=== PATIENT | female | born 1980 | race Caucasian/White ===

== ENCOUNTER 2019-03-21 23:35 | Inpatient (IN) ==
[2019-03-21] MEDS ORDERED: OXYTOCIN 30 UNITS/500 ML BAG IV PRN (23:53)
--- NOTE | 2019-03-22 00:01 | History & Physical Report ---
Date of Service March 21, 2019 Assessment & Plan (1) Uterine contractions at greater than 20 weeks of gestation: 38 yo [id number] 39.4 wks with regular ctxs, cervical change, in labor FHR reassuring GBS negative Desires epidural for pain Plan to admit, labs, IVF, epidural for pain, anticipate (2) Active labor at term: History of Present Illness Primary Care Provider: Yemi William MD Patient is a 38 yo at 39.4 wks who has been feeling ctxs since 7 pm, got closer and regular after 10 pm No LOF/VB +FM Her has been uncomplicated except 1) AMA 2) Transfer of care at 276 wks from 3) 1.2 cm rigth axillary mass, benign features, f/u after delivery by Dr. 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
[2019-03-22] MEDS ORDERED: ePHEDrine sulfate 50 MG/ML AMP ONE (00:09)
[2019-03-22] MEDS ORDERED: BUPIVACAINE 0.25% 30 ML VIAL ONE (00:09)
[2019-03-22] MEDS ORDERED: fentaNYL citrate 100 MCG/2 ML VIAL ONE (00:09)
[2019-03-22] MEDS: LACTATED RINGER'S 1,000 ML IV PRN ×2 (00:10→01:08)
[2019-03-22] MEDS ORDERED: fentaNYL 2MCG/ML ROPIV 1.25MG/ML 100 ML BAG EPI ONE (00:10)
[2019-03-22 00:30] LABS: Hematocrit (blood only) 39.9 % (37-47); Hemoglobin 13.9 g/dL (12.0-16.0); Mean Corpuscular Volume 89.1 fL (80-100); Mean Platelet Volume 9.7 fL (7.4-10.4); Platelet Count 175 K/uL (130-400); RDW Coefficient of Variation 13.3 % (11.5-14.5); RDW Standard Deviation 42.9 fL (36.4-46.3); Red Blood Count 4.48 M/uL (4.2-5.4); White Blood Count 13.87 K/uL (4.8-10.8)
[2019-03-22 00:42] LABS: Mean Corpuscular Hgb Conc 34.8 g/dL (32-36)
[2019-03-22 00:46] LABS: Albumin Level 2.9 gm/dl (3.4-5.0); BUN Creatinine Ratio 6.6 (10-20); Calcium 9.4 mg/dl (8.5-10.1); Creatinine Clr Calc Pharmacy 101.4 ml/min; Est GFR (African American) 129.8; Potassium 3.6 mmol/L (3.5-5.1)
[2019-03-22 00:49] LABS: Albumin Globulin Ratio 0.7 (0.9-2); Bilirubin,Total 0.3 mg/dl (0.2-1); Globulin 4.2 gm/dl (2.5-4.0); Total Protein 7.1 gm/dl (6.4-8.2)
--- NOTE | 2019-03-22 00:52 | Anesthesiology Consultation ---
Date of Service March 22, 2019 Assessment & Plan Chart Review Chart Review: Patient NOT seen in Pre Admission Testing and Acceptable Risk for Labor Epidural Consults Requested none ASA ASA2 Proposed Anesthesia Anesthesia Type: Labor Epidural Risk / Benefits Reviewed With: PT / POA / Parent / Guardian, Accepts Plan and Informed Consent Obtained History Height/Weight Height: 5 ft 5 in Weight: 66.224 kg Allergies Allergy/AdvReac Type Severity Reaction Status Date / Time No Known Allergies Allergy Mild Verified 03/21/19 23:43 Medications Home Medications Medication Instructions Recorded Confirmed Last Taken vit-iron fum-folic ac 1 tab PO DAILY 03/21/19 03/21/19 03/21/19 09:00 [ Vitamin] Active Medications Generic Name Dose Route Start Last Admin Trade Name Freq PRN Reason Stop Dose Admin Lactated Ringer's 1,000 mls @ 150 mls/hr 03/21/19 23:53 03/22/19 01:08 Lr IV 03/23/19 23:52 150 mls/hr .Q6H40M PRN Administration L&D Protocol Protocol NPO Date Last Intake of Fluids: 03/22/19 Time Last Intake of Fluids: 00:50 Date Last Intake of Solids: 03/21/19 Time Last Intake of Solids: 20:00 Exercise / Class Metabolic Activity II 4-5 Yardwork/Stairs/Walk up hill Past Surgical History Surgical History H/O dilation and curettage 2018 [place] teeth extracted 2000 Past Anesthesia History No Hx of Anesthesia Complications History of PONV No Hx of PONV Social History Smoking Status: Never smoker Hx Alcohol Use: No Hx Substance Use: No substance use type: does not use Review of Systems Patient denies history of abnormal bleeding or bleeding disorder. Patient denies active use of anticoagulants other than low dose aspirin. Patient denies numbness, tingling or weakness in lower extremities. Negative for chest pain or shortness of breath. Physical Exam Vital Signs Last Vital Signs Temp 36.5 C 03/21/19 23:58 Pulse 100 H 03/22/19 01:18 Resp 18 03/21/19 23:58 BP 106/54 L 03/22/19 01:18 Pulse Ox 100 03/22/19 01:15 Constitutional not obese (Gravid uterus) ENMT Mouth: no TMJ abnormality and oral opening not small Thyromental Distance: > or= 3.5 Finger Breadths Mallampati Class: I Neck normal visual inspection; neck extension not limited Respiratory normal respiratory effort Auscultation: lungs clear to auscultation bilaterally Cardiovascular Rate/Rhythm: regular rate and regular rhythm Heart Sounds: no murmur Neurologic moves all extremities Psychiatric Orientation: alert and oriented x 3 Testing Laboratory Results 03/22/19 00:19 03/22/19 00:19
[2019-03-22] MEDS ORDERED: ePHEDrine sulfate 50 MG/ML AMP IV PRN (01:30)
[2019-03-22] MEDS ORDERED: NALOXONE HCL 0.4 MG/1 ML VIAL/CARP IV PRN (01:30)
[2019-03-22] MEDS ORDERED: ONDANSETRON INJ 2 MG/ML 2 ML VIAL IV PRN (01:30)
[2019-03-22] MEDS ORDERED: DiphenhydrAMINE HCL 50 MG/ML VIAL IV PRN (01:30)
[2019-03-22] MEDS ORDERED: NALBUPHINE HCL INJ 10 MG/ML AMP IV PRN (01:30)
[2019-03-22] MEDS ORDERED: fentaNYL 2MCG/ML ROPIV 1.25MG/ML 100 ML BAG EPI PRN (01:30)
[2019-03-22] MEDS ORDERED: NALOXONE HCL 1 MG in SODIUM CHLORIDE 0.9% 1000ML 1,000 ML IV PRN (01:30)
--- NOTE | 2019-03-22 03:05 | Obstetrical Progress Note ---
Date of Service March 22, 2019 Subjective Patient is reevaluated She feels pressure VE: 7-8 cm/ 90%/ 0, AROM'ed light meconium FHR category I [place]: ctxs q 2-3 min Continue to monitor closely Results & Data Vital Signs (Past 12 Hours) Vital Signs Temp Pulse Resp BP Pulse Ox 03/22/19 03:00 113 H 98 03/22/19 02:55 124 H 98 03/22/19 02:50 103 H 97 03/22/19 02:49 110 H 110/66 03/22/19 02:45 126 H 97 03/22/19 02:40 127 H 97 03/22/19 02:35 112 H 98 03/22/19 02:33 110 H 101/58 L 03/22/19 02:30 112 H 96 03/22/19 02:25 114 H 99 03/22/19 02:20 118 H 97 03/22/19 02:18 116 H 102/58 L 03/22/19 02:15 111 H 98 03/22/19 02:12 125 H 103/61 03/22/19 02:10 114 H 98 03/22/19 02:08 127 H 117/70 03/22/19 02:05 112 H 100 03/22/19 02:03 122 H 124/70 03/22/19 02:00 109 H 100 03/22/19 01:59 102 H 110/61 03/22/19 01:55 105 H 100 03/22/19 01:52 100 H 105/55 L 03/22/19 01:50 105 H 100 03/22/19 01:48 109 H 119/62 03/22/19 01:45 109 H 99 03/22/19 01:42 100 H 113/64 03/22/19 01:40 104 H 99 03/22/19 01:38 111 H 114/66 03/22/19 01:35 110 H 99 03/22/19 01:31 115 H 127/72 03/22/19 01:30 106 H 99 03/22/19 01:29 106 H 125/77 03/22/19 01:28 104 H 124/73 03/22/19 01:26 93 H 110/61 03/22/19 01:25 102 H 99 03/22/19 01:24 94 H 106/62 03/22/19 01:22 107 H 98/54 L 03/22/19 01:20 90 96/55 L 100 03/22/19 01:18 100 H 106/54 L 03/22/19 01:16 107 H 116/59 L 03/22/19 01:15 100 H 100 03/22/19 01:14 117 H 139/67 03/22/19 01:12 127 H 132/84 03/22/19 01:11 124 H 92 03/22/19 01:10 114 H 100 03/22/19 01:05 95 H 100 03/22/19 01:00 106 H 98 03/22/19 00:55 109 H 99 03/22/19 00:50 103 H 136/92 99 03/21/19 23:58 36.5 C 96 H 18 132/87 03/21/19 23:40 36.5 C 96 H 18 132/87
[2019-03-22] MEDS ORDERED: OXYTOCIN 30 UNITS/500 ML BAG IV PRN (04:23)
[2019-03-22] MEDS ORDERED: ACETAMINOPHEN 325 MG TAB PO PRN (04:23)
[2019-03-22] MEDS ORDERED: OXYCODONE/ACETAMINOPHEN 5mg/325mg TAB PO PRN (04:23)
[2019-03-22] MEDS ORDERED: bisacodyL 10 MG SUPP PR PRN (04:23)
[2019-03-22] MEDS ORDERED: HYDROCORTISONE ACETATE 25 MG SUPP PR PRN (04:23)
[2019-03-22] MEDS ORDERED: BENZOCAINE 20% AER SPR 82.5 GM CAN EXT PRN (04:23)
[2019-03-22] MEDS ORDERED: DIPHTHERIA/TETANUS/PERTUSSIS 0.5 ML SYR/VIAL IM ONE (04:23)
[2019-03-22] MEDS ORDERED: SUPERCREAM 0.870% 15 GM JAR EXT PRN (04:23)
[2019-03-22] MEDS ORDERED: MEASLES, MUMPS & RUBELLA VIRUS VIAL SQ ONE (04:23)
[2019-03-22] MEDS ORDERED: LACTATED RINGER'S 1,000 ML IV SCH (04:30)
--- NOTE | 2019-03-22 07:09 | Delivery Summary ---
DATE OF OPERATION: 03/22/2019 DATE OF DELIVERY: 03/22/2019 TIME OF DELIVERY OF BABY: 04:00 a.m. DETAILS OF DELIVERY: The patient was found to be fully dilated and desired to push. She pushed for about 15 minutes and delivered, and the head was over the perineum. It was a tight skin band and holding the head. FHR had decelerations and mom was being exhausted and desired assistance. Then a small 1 cm incision was made on the tight skin edge and head was delivered without difficulty. Shoulders were delivered with minimal traction. Baby was handed off to the mother where mouth and nose were suctioned. Cord was clamped x2 and cut. Baby was handed off to the waiting pediatric team. Cord blood was obtained. Vagina and perineum were checked for lacerations. There was a second-degree perineal/ lower vaginal laceration and the rest of the vagina, labia were intact. This was repaired with 0 Vicryl in a running fashion bringing the vaginal mucosa together, bulbocavernous muscles together, skin in a subcuticular fashion. Excellent hemostasis was achieved. Placenta was found to be in the vagina, delivered spontaneous as intact and complete. Uterus was explored, found to be empty. Lower segment was cleared of all clots and debris. Fundus was firm. EBL was 100 mL. Mom and baby tolerated the procedure well. Sponge, lap, needle count was correct x2. Baby was a viable male , Apgars 6/8. Weight is 3733 gr. No complications happened and I was present during whole procedure. I attest to the content of the Intraoperative Record and any orders documented therein. Any exceptions are noted below. FEDERICOD
--- NOTE | 2019-03-22 08:38 | Anesthesiology Progress Note ---
Date of Service March 22, 2019 Anesthesia Post Procedure Vital Signs Vital Signs: Temp Pulse Resp BP Pulse Ox 03/22/19 06:18 36.8 C 123 H 16 113/58 L 03/22/19 06:03 108/80 03/22/19 05:48 116 H 18 110/77 03/22/19 05:33 120 H 103/71 03/22/19 05:18 116 H 16 106/71 03/22/19 05:03 115 H 18 114/78 03/22/19 04:48 125 H 16 103/66 03/22/19 04:34 116 H 16 117/63 03/22/19 04:19 127 H 118/79 03/22/19 04:18 36.6 C 130 H 18 120/78 03/22/19 04:15 132 H 98 03/22/19 04:10 129 H 97 03/22/19 04:05 135 H 98 03/22/19 04:03 137 H 128/83 03/22/19 04:00 168 H 99 03/22/19 03:55 155 H 99 03/22/19 03:50 132 H 125/76 95 03/22/19 03:49 131 H 123/76 03/22/19 03:45 129 H 99 03/22/19 03:40 130 H 99 03/22/19 03:35 135 H 99 03/22/19 03:33 126 H 141/65 H 03/22/19 03:30 121 H 18 98 03/22/19 03:25 121 H 99 03/22/19 03:20 127 H 98 03/22/19 03:18 118 H 123/77 03/22/19 03:15 112 H 98 03/22/19 03:10 111 H 99 03/22/19 03:05 112 H 99 03/22/19 03:03 117/77 03/22/19 03:00 36.9 C 113 H 16 98 03/22/19 02:55 124 H 98 03/22/19 02:50 103 H 97 03/22/19 02:49 110 H 110/66 03/22/19 02:45 126 H 97 03/22/19 02:40 127 H 97 03/22/19 02:35 112 H 98 03/22/19 02:33 110 H 101/58 L 03/22/19 02:30 112 H 16 96 12/01/19 02:25 114 H 99 03/22/19 02:20 118 H 97 03/22/19 02:18 116 H 102/58 L 03/22/19 02:15 111 H 16 98 03/22/19 02:12 125 H 103/61 03/22/19 02:10 114 H 98 03/22/19 02:08 127 H 117/70 03/22/19 02:05 112 H 100 03/22/19 02:03 122 H 124/70 03/22/19 02:00 109 H 18 100 03/22/19 01:59 102 H 110/61 03/22/19 01:55 105 H 100 03/22/19 01:52 100 H 105/55 L 03/22/19 01:50 105 H 100 03/22/19 01:48 109 H 119/62 03/22/19 01:45 109 H 18 99 03/22/19 01:42 100 H 113/64 03/22/19 01:40 104 H 99 03/22/19 01:38 111 H 114/66 03/22/19 01:35 110 H 99 03/22/19 01:31 115 H 127/72 03/22/19 01:30 106 H 20 99 03/22/19 01:29 106 H 125/77 03/22/19 01:28 104 H 124/73 03/22/19 01:26 93 H 110/61 03/22/19 01:25 102 H 99 03/22/19 01:24 94 H 106/62 03/22/19 01:22 107 H 98/54 L 03/22/19 01:20 90 96/55 L 100 03/22/19 01:18 100 H 106/54 L 03/22/19 01:16 107 H 116/59 L 03/22/19 01:15 100 H 20 100 03/22/19 01:14 117 H 139/67 03/22/19 01:12 127 H 132/84 03/22/19 01:11 124 H 92 03/22/19 01:10 114 H 100 03/22/19 01:05 95 H 100 03/22/19 01:00 106 H 98 03/22/19 00:55 109 H 99 03/22/19 00:50 103 H 136/92 99 03/21/19 23:58 36.5 C 96 H 18 132/87 03/21/19 23:40 36.5 C 96 H 18 132/87 Pain Intensity Bilateral Abdomen: Pain Intensity: 0 Transfer of Care Handoff Completed per policy Notes Mental Status: alert / awake / arousable Patient Amnestic to Procedure: Yes Nausea / Vomiting: adequately controlled Pain: adequately controlled Airway Patency, RR, SpO2: stable & adequate BP & HR: stable & adequate Hydration State: stable & adequate Anesthetic Complications: no major complications apparent Notes: Patient has some residual numbness in her R thigh. Femoral N distribution. No weakness. Likely related to stretch with positioning for delivery, unlikely to be related to epidural. Expect this should slowly improve over days to weeks, and would recommend neurology eval if not resolved within a month.
[2019-03-22] MEDS: DOCUSATE SODIUM 100 MG CAP PO SCH ×2 (10:06→19:51)
[2019-03-22] MEDS: PRENATAL VITAMIN 1 TAB PO SCH (10:06)
[2019-03-22] MEDS: FERROUS SULFATE 325 MG TAB PO SCH (10:06)
[2019-03-22] MEDS: IBUPROFEN 600 MG TAB PO PRN ×4 (10:06→23:37)
[2019-03-23] MEDS: IBUPROFEN 600 MG TAB PO PRN ×4 (05:49→20:23)
[2019-03-23 07:11] LABS: Hematocrit (blood only) 35.9 % (37-47); Mean Corpuscular Hemoglobin 30.5 pg (25-34); Mean Corpuscular Hgb Conc 33.4 g/dL (32-36); Mean Corpuscular Volume 91.1 fL (80-100); Mean Platelet Volume 9.7 fL (7.4-10.4); Platelet Count 157 K/uL (130-400); RDW Coefficient of Variation 13.7 % (11.5-14.5); Red Blood Count 3.94 M/uL (4.2-5.4); White Blood Count 15.17 K/uL (4.8-10.8)
[2019-03-23] MEDS: FERROUS SULFATE 325 MG TAB PO SCH (07:41)
[2019-03-23] MEDS: PRENATAL VITAMIN 1 TAB PO SCH (07:41)
[2019-03-23] MEDS: DOCUSATE SODIUM 100 MG CAP PO SCH ×2 (07:41→20:23)
--- NOTE | 2019-03-23 09:02 | Obstetrical Progress Note ---
Date of Service March 23, 2019 Subjective PPD#1 doing well out of bed ambulating well tolerating diet passing gas Physical Exam Constitutional: WD/WN, vitals as above comfortable Fundus firm no edema neg Dion's plan for discharge in AM Results & Data Vital Signs (Past 12 Hours) Vital Signs Temp Pulse Resp BP Pulse Ox 03/23/19 07:30 36.2 C L 81 16 102/69 98 03/23/19 04:40 36.4 C L 85 18 95/61 L 03/22/19 23:30 36.4 C L 82 18 92/56 L 98 Laboratory Results Laboratory Results - last 48 hr 03/22/19 03/22/19 03/23/19 00:19 00:19 07:02 WBC 13.87 H 15.17 H RBC 4.48 3.94 L Hgb 13.9 12.0 Hct 39.9 35.9 L MCV 89.1 91.1 MCH 31.0 30.5 MCHC 34.8 33.4 RDW Std Deviation 42.9 45.0 RDW Coeff of Yoly 13.3 13.7 Plt Count 175 157 MPV 9.7 9.7 Sodium 137 Potassium 3.6 Chloride 105 Carbon Dioxide 25 Anion Gap 7.0 BUN 5 L Creatinine 0.69 Est Cr Clr Drug Dosing 101.4 Est GFR ( Amer) 129.8 Est GFR (Non-Af Amer) 112.0 BUN/Creatinine Ratio 6.6 L Glucose 91 Calcium 9.4 Total Bilirubin 0.3 AST 14 L ALT 14 Alkaline Phosphatase 237 H Total Protein 7.1 Albumin 2.9 L Globulin 4.2 H Albumin/Globulin Ratio 0.7 L
[2019-03-23] MEDS ORDERED: bisacodyL 5 MG TABEC PO SCH (20:00)
[2019-03-24 06:22] LABS: Hemoglobin 11.5 g/dL (12.0-16.0)
[2019-03-24] MEDS: FERROUS SULFATE 325 MG TAB PO SCH (07:11)
[2019-03-24] MEDS: IBUPROFEN 600 MG TAB PO PRN ×2 (07:11→11:02)
[2019-03-24] MEDS: DOCUSATE SODIUM 100 MG CAP PO SCH (07:11)
[2019-03-24] MEDS: PRENATAL VITAMIN 1 TAB PO SCH (07:11)
--- NOTE | 2019-03-24 10:01 | Obstetrical Progress Note ---
Date of Service March 24, 2019 Assessment & Plan (1) normal course: PPD #2 pt doing well No complaints d/c home with instructions Subjective Ambulation: ambulating normally Voiding: no voiding problems Passing Gas:: Yes Diet Tolerance:: regular diet Lochia:: Small Feeding Type:: breast feeding Review of Systems All systems reviewed & are unremarkable except as noted in HPI & below Physical Exam Constitutional WD/WN, vitals as above well developed and well nourished Eyes PERRL, conjunctivae normal, anicteric sclerae Neck trachea midline, no thyromegaly Respiratory normal respiratory effort, lungs clear to auscultation Auscultation: no crackles, no rales and no wheezes Cardiovascular RRR, no murmur, no edema Gastrointestinal (Abdomen) normal bowel sounds, soft, nontender, no hepatosplenomegaly Uterus is below umbilicus Musculoskeletal no cyanosis or clubbing, extremities motor strength 5/5 Skin no rashes, warm and dry Neurologic patellar DTR's 2+ bilat, sensation intact Psychiatric A+Ox3, euthymic affect Genitourinary normal external appearance Results & Data Vital Signs (Past 12 Hours) Vital Signs Temp Pulse Pulse Resp BP Pulse Ox 03/24/19 08:15 36.5 C 80 16 105/70 97 03/24/19 00:10 36.4 C L 78 18 100/63
== END 2019-03-24 12:30 | disposition home or self-care (01) | DRG 807 ==
LOC: OPB 23:35 → 4S1 23:38 → 4S2 03-22 06:35

== ENCOUNTER 2021-07-12 11:37 | Inpatient (IN) ==
[2021-07-12] MEDS ORDERED: DINOPROSTONE 10 MG INSERT PV ONE (14:52)
[2021-07-12] MEDS ORDERED: OXYTOCIN 30 UNITS/500 ML BAG IV PRN (14:52)
[2021-07-12 15:12] LABS: Hematocrit (blood only) 41.3 % (37-47); Mean Corpuscular Hemoglobin 31.1 pg (25-34); Mean Corpuscular Hgb Conc 33.9 g/dL (32-36); Mean Corpuscular Volume 91.8 fL (80-100); Platelet Count 176 K/uL (130-400); RDW Coefficient of Variation 13.3 % (11.5-14.5); RDW Standard Deviation 44.3 fL (36.4-46.3); White Blood Count 13.59 K/uL (4.8-10.8)
[2021-07-12] MEDS: LACTATED RINGER'S 1,000 ML IV PRN ×3 (16:05→23:27)
[2021-07-12] MEDS ORDERED: BUTORPHANOL TARTRATE 1 MG/ML VIAL IV PRN (16:11)
--- NOTE | 2021-07-12 16:11 | History & Physical Report ---
Date of Service July 12, 2021 Assessment & Plan (1) Post-dates : Plan: 40-year-old G 4 P2012 at 40 weeks and 3 days of gestation presenting today for scheduled induction of labor, Vital signs stable afebrile, heart rate reassuring, GBS negative, Coronavirus testing negative, Cervix unfavorable, Plan to admit, monitor, labs, Cervidil for cervical ripening, patient understands what to expect during induction of labor and all questions were answered Admission and Anticipated Discharge Date Admission Date: July 12, 2021 History of Present Illness Primary Care Provider: Yemi William MD Patient is a 40-year-old -0-1-2 at 40 weeks and 3 days of gestation who was scheduled for induction of labor for postdates. She has no complaints. She denies contractions, leakage of fluid, vaginal bleeding. She reports good movements. Her has been uncomplicated except, 1. AMA, genetic testing were low risk/negative, 2.multiple nevi, family history of melanoma, GBS negative, Coronavirus testing negative. Allergies Allergy/AdvReac Type Severity Reaction Status Date / Time No Known Allergies Allergy Mild Verified 03/21/19 23:43 Home Medications Medication Instructions Recorded Confirmed Type vitamins-iron fumarate 27 1 tab PO DAILY 03/21/19 07/12/21 History mg iron-folic acid 0.8 mg tablet ( Vitamin) Patient History Medical History Raynauds disease Surgical History H/O dilation and curettage 2018 [place] teeth extracted 1999 Social History Smoking Status: Never smoker Second Hand Exposure: No; Do You Dip or Chew Tobacco: No; Hx Alcohol Use: No Hx Substance Use: No Preferred Language: Slovenian Communication Ability: Effective Auto Polisher Required: No Beliefs That Will Affect Care: None marital status: Current Living Situation: Spouse Current Living Situation Comment: Lives at home with , 2 sons, and one cat. 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 No history of STDs, no history of chlamydia, gonorrhea, herpes Review of Systems as per Subjective / HPI Physical Exam Constitutional: WD/WN, vitals as above well developed and well nourished Comfortable, not in acute distress Gastrointestinal (Abdomen): normal bowel sounds, soft, nontender, no hepatosplenomegaly (Gravid, Car 7 to 8 pounds) Genitourinary: normal external appearance OB Exam Abdomen: + vertex Manual OB Exam: + cervical dilation 2 cm, + cervical effacement 30% and + station high OB Exam Monitor Tracing: + external uterine monitor used and + category I Results & Data ([facility]) Vital Signs (Past 12 Hours) Vital Signs Temp Pulse Resp BP 07/12/21 14:54 106 H 124/90 07/12/21 14:38 36.6 C 125 H 16 131/76 07/12/21 14:30 125 H 131/76 Laboratory Results Lab Results 07/12/21 Range/Units 15:03 WBC 13.59 H (4.8-10.8) K/uL RBC 4.50 (4.2-5.4) M/uL Hgb 14.0 (12.0-16.0) g/dL Hct 41.3 (37-47) % MCV 91.8 (80-100) fL MCH 31.1 (25-34) pg MCHC 33.9 (32-36) g/dL RDW Std Deviation 44.3 (36.4-46.3) fL RDW Coeff of Yoly 13.3 (11.5-14.5) % Plt Count 176 (130-400) K/uL MPV 10.0 (7.4-10.4) fL
--- NOTE | 2021-07-12 18:23 | Obstetrical Progress Note ---
Date of Service July 12, 2021 Assessment & Plan Admission and Anticipated Discharge Date Admission Date: July 12, 2021 Subjective Patient is reevaluated. She feels well with no complaints. Feels mild irregular crampings but they are not painful. heart rate reassuring, categ I Continue to monitor closely Results & Data ([facility]) Vital Signs (Past 12 Hours) Vital Signs Temp Pulse Resp BP 07/12/21 14:54 106 H 124/90 07/12/21 14:38 36.6 C 125 H 16 131/76 07/12/21 14:30 125 H 131/76
[2021-07-12] MEDS ORDERED: SODIUM CHLORIDE 0.9% INJ 10 ML VIAL ONE (21:50)
[2021-07-12] MEDS ORDERED: ePHEDrine sulfate 50 MG/ML AMP ONE (21:50)
[2021-07-12] MEDS ORDERED: BUPIVACAINE 0.25% 30 ML VIAL ONE (21:50)
[2021-07-12] MEDS ORDERED: fentaNYL citrate 100 MCG/2 ML VIAL ONE (21:50)
[2021-07-12] MEDS ORDERED: fentaNYL 2MCG/ML ROPIVACAINE 1.25MG/ML 100 ML BAG EPI ONE (21:51)
--- NOTE | 2021-07-12 22:13 | Anesthesiology Consultation ---
Date of Service July 12, 2021 Assessment & Plan (1) Encounter for pre-operative examination: Chart Review Chart Review: Acceptable Risk for Surgery and Patient NOT seen in Pre Admission Testing Consults Requested none History Height/Weight Height: 5 ft 5 in Weight: 65.771 kg Allergies Allergy/AdvReac Type Severity Reaction Status Date / Time No Known Allergies Allergy Mild Verified 03/21/19 23:43 Medications Home Medications Medication Instructions Recorded Confirmed Last Taken vitamins-iron fumarate 27 1 tab PO DAILY 03/21/19 07/12/21 07/12/21 mg iron-folic acid 0.8 mg tablet ( Vitamin) Active Medications Generic Name Dose Route Start Last Admin Trade Name Freq PRN Reason Stop Dose Admin Butorphanol Tartrate 1 mg 07/12/21 16:11 07/12/21 21:17 Butorphanol Tartrate 1 Mg/Ml Vial IV 08/11/21 16:10 1 mg Q3HWA PRN Administration Pain Lactated Ringer's 1,000 mls @ 150 mls/hr 07/12/21 14:52 07/12/21 22:06 Lr IV 07/14/21 14:51 999 mls/hr .Q6H40M PRN Infusion L&D Protocol Protocol Past Medical History Medical History (Updated 07/12/21 @ 22:13 by Heavenly Kirkpatrick MD) Raynauds disease Past Surgical History Surgical History H/O dilation and curettage 2018 [place] teeth extracted 1999 Social History Smoking Status: Never smoker Do You Dip or Chew Tobacco: No Hx Alcohol Use: No Hx Substance Use: No substance use type: does not use Physical Exam Vital Signs Last Vital Signs Temp 36.6 C 07/12/21 19:10 Pulse 100 H 07/12/21 21:06 Resp 20 07/12/21 19:10 BP 115/85 07/12/21 21:06 Testing Laboratory Results 07/12/21 15:03
[2021-07-12] MEDS ORDERED: ONDANSETRON INJ 2 MG/ML 2 ML VIAL IV PRN (22:47)
[2021-07-12] MEDS ORDERED: ePHEDrine sulfate 50 MG/ML AMP IV PRN (22:47)
[2021-07-12] MEDS ORDERED: NALBUPHINE HCL INJ 10 MG/ML AMP IV PRN (22:47)
[2021-07-12] MEDS ORDERED: diphenhydrAMINE 50 MG/ML VIAL IV PRN (22:47)
[2021-07-12] MEDS ORDERED: NALOXONE HCL 0.4 MG/1 ML VIAL/CARP IV PRN (22:47)
[2021-07-12] MEDS ORDERED: fentaNYL 2MCG/ML ROPIVACAINE 1.25MG/ML 100 ML BAG EPI PRN (22:47)
[2021-07-12] MEDS ORDERED: NALOXONE HCL 1 MG in SODIUM CHLORIDE 0.9% 1000ML 1,000 ML IV PRN (22:47)
--- NOTE | 2021-07-12 23:09 | Obstetrical Progress Note ---
Date of Service July 12, 2021 Assessment & Plan Admission and Anticipated Discharge Date Admission Date: July 12, 2021 Subjective Patient is reevaluated. she became painful and received epidural for pain. Now she is comfortable. Vaginal exam, cervix is 5 cm dilated, 80% effaced, head at -1 station with a bulging bag, AROM, clear fluid. heart rate category 1, [place] with contractions every 2 to 3 minutes, Cervidil was removed, Continue to monitor, And dissipate . Results & Data ([facility]) Vital Signs (Past 12 Hours) Vital Signs Temp Pulse Resp BP Pulse Ox 07/12/21 23:04 104 H 100 07/12/21 22:59 113 H 99 07/12/21 22:56 100 H 108/58 L 07/12/21 22:54 97 H 99 07/12/21 22:49 101 H 124/57 L 100 07/12/21 22:46 112 H 118/63 07/12/21 22:44 116 H 120/56 L 98 07/12/21 22:39 105 H 144/63 H 94 07/12/21 22:34 87 104/64 99 07/12/21 22:32 75 99/52 L 07/12/21 22:30 101 H 106/66 07/12/21 22:29 78 95 07/12/21 22:28 96 H 114/66 07/12/21 22:24 118 H 94 07/12/21 22:19 117 H 133/96 99 07/12/21 21:06 100 H 115/85 07/12/21 19:10 36.6 C 105 H 20 07/12/21 14:54 106 H 124/90 07/12/21 14:38 36.6 C 125 H 16 131/76 07/12/21 14:30 125 H 131/76
[2021-07-13] MEDS ORDERED: OXYTOCIN 30 UNITS/500 ML BAG IV PRN (00:27)
[2021-07-13] MEDS ORDERED: miSOPROStoL 200 MCG TAB PR ONE (00:27)
[2021-07-13] MEDS ORDERED: DIPHTHERIA/TETANUS/PERTUSSIS 0.5 ML SYR/VIAL IM ONE (00:27)
[2021-07-13] MEDS ORDERED: HYDROCORTISONE ACETATE 25 MG SUPP PR PRN (00:27)
[2021-07-13] MEDS ORDERED: BENZOCAINE 20% AER SPR 82.5 GM CAN EXT PRN (00:27)
[2021-07-13] MEDS ORDERED: MEASLES, MUMPS & RUBELLA VIRUS VIAL SQ ONE (00:27)
--- NOTE | 2021-07-13 00:39 | Delivery Summary ---
Vaginal Delivery Summary Date of Service July 13, 2021 Vaginal Delivery Summary Patient was found to be fully dilated and desire to push. she pushed through 3 contractions and brought head down to +3 station. heart rate was having prolonged decelerations to 80s to 90s. I was able to feel sagittal suture anterior and posterior fontanelles and maternal vagina had enough space for vacuum placement. Her bladder was emptied and 200 mL of clear urine was obtained and then Kiwi vacuum was placed 1 cm from small/ posterior fontanelle. When the contractions started patient start pushing and I increased the vacuum's pressure to green zone. With the patient pushing and va cuum medical laboratory assistant head was delivered without difficulty with 1 pull without pop offs within seconds. And the vacuum was released and removed from baby's head. There was a nuchal cord around the neck x1 which was reduced. The shoulders were lowered with minimal traction and the baby was handed off to the mother. The mouth and nose were suctioned and the cord was clamped times and cut. The baby was handed off to the waiting pediatric team. The vagina and perineum were checked for lacerations. There was a small first- degree laceration at the right labia. It was repaired with 3-0 Vicryl on SH needle in a continuous manner and excellent hemostasis achieved. There was a small first-degree laceration at the hymenal ring at 4 o'clock position. It was also repaired with the same suture with [id number] stitch x1. Rest of the vagina and perineum were intact. Then the placenta was found to be in the vagina, delivered spontaneously as intact and complete. Uterus was explored and found to be empty, the lower segment was cleared of all clots and debris's, fundus was firm and EBL was 300 mL. IV oxytocin infusion was started, 800 mcg of rectal Cytotec's were placed and the bleeding became minimal. Mom and baby tolerated procedure well. Sponge needle instrument count was correct x2. The baby was a viable male , delivered at 00:05 a.m. and Apgars were 8/8. The weight is pending. No complications happened and I was present during whole procedure.
[2021-07-13] MEDS: IBUPROFEN 600 MG TAB PO PRN ×5 (02:22→20:36)
--- NOTE | 2021-07-13 05:18 | Anesthesia Procedure Note ---
Date of Service July 13, 2021 Anesthesia Post Epidural Note Vital Signs Vital Signs: Temp Pulse Resp BP Pulse Ox 36.5 C 107 H 20 123/76 99 07/13/21 02:22 07/13/21 02:37 07/13/21 02:22 07/13/21 02:37 07/13/21 00:09 Pain Intensity Bilateral Abdomen: Pain Intensity: 0 Notes Mental Status: alert / awake / arousable and participated in evaluation Nausea / Vomiting: adequately controlled Pain: adequately controlled Airway Patency, RR, SpO2: stable & adequate BP & HR: stable & adequate Hydration State: stable & adequate Neuraxial Anesthesia: was administered and sensory block is resolving Anesthetic Complications: no major complications apparent and Pt Satisfied with anesthetic care Epidural: Removed without complications and With tip intact
[2021-07-13] MEDS: PRENATAL VITAMIN 1 TAB PO SCH (09:04)
[2021-07-13] MEDS: FERROUS SULFATE 325 MG TAB PO SCH (09:04)
[2021-07-13] MEDS: DOCUSATE SODIUM 100 MG CAP PO SCH ×2 (09:04→20:37)
[2021-07-13] MEDS: ACETAMINOPHEN 325 MG TAB PO PRN (23:30)
[2021-07-14] MEDS: IBUPROFEN 600 MG TAB PO PRN ×2 (06:38→16:13)
[2021-07-14 07:12] LABS: Hematocrit (blood only) 35.6 % (37-47); Hemoglobin 12.1 g/dL (12.0-16.0); Mean Corpuscular Hemoglobin 31.2 pg (25-34); Mean Corpuscular Volume 91.8 fL (80-100); Mean Platelet Volume 9.8 fL (7.4-10.4); Platelet Count 170 K/uL (130-400); RDW Coefficient of Variation 13.4 % (11.5-14.5); RDW Standard Deviation 44.7 fL (36.4-46.3); Red Blood Count 3.88 M/uL (4.2-5.4); White Blood Count 16.23 K/uL (4.8-10.8)
[2021-07-14] MEDS: FERROUS SULFATE 325 MG TAB PO SCH (08:36)
[2021-07-14] MEDS: DOCUSATE SODIUM 100 MG CAP PO SCH (08:36)
[2021-07-14] MEDS: ACETAMINOPHEN 325 MG TAB PO PRN (08:36)
[2021-07-14] MEDS: PRENATAL VITAMIN 1 TAB PO SCH (08:36)
--- NOTE | 2021-07-14 08:58 | Obstetrical Progress Note ---
Date of Service July 14, 2021 Assessment & Plan Admission and Anticipated Discharge Date Admission Date: July 12, 2021 Subjective Patient is seen and examined. She feels well, no complaints. Desires d/c Ambulating without dizziness Voiding without difficulty Tolerating regular diet with out N&V Bleeding is minimal No fever/ chills/ CP/ SOB/ N&V/ Leg pain Breast feeding without problems Vital Signs Temp Pulse Resp BP Pulse Ox 07/13/21 23:40 37.0 C 99 H 18 99/71 L 07/13/21 20:10 36.4 C L 95 H 20 105/75 97 07/13/21 15:30 37.4 C 88 16 116/74 98 07/13/21 12:45 36.3 C L 89 16 114/75 100 Lab Results 07/12/21 07/14/21 Range/Units 15:03 06:50 WBC 13.59 H 16.23 H (4.8-10.8) K/uL RBC 4.50 3.88 L (4.2-5.4) M/uL Hgb 14.0 12.1 (12.0-16.0) g/dL Hct 41.3 35.6 L (37-47) % MCV 91.8 91.8 (80-100) fL MCH 31.1 31.2 (25-34) pg MCHC 33.9 34.0 (32-36) g/dL RDW Std Deviation 44.3 44.7 (36.4-46.3) fL RDW Coeff of Yoly 13.3 13.4 (11.5-14.5) % Plt Count 176 170 (130-400) K/uL MPV 10.0 9.8 (7.4-10.4) fL PE: General: Alert, orientedx3, NAD Abd: soft, NT, fundus firm, below Umbilicus Perineum intact, Lochia rubra minimal Ext; NT, no edema AP: 40 yo s/p , ppd# 1 VSS Afebrile doing well WBCC elevated, afebrile Desires d/c today Plan to repeat at 5 pm and then d/c Continue routine care All questions were answered Results & Data ([facility]) Vital Signs (Past 12 Hours) Vital Signs Temp Pulse Resp BP 07/13/21 23:40 37.0 C 99 H 18 99/71 L
[2021-07-14 17:24] LABS: Basophils # (auto) 0.03 K/uL (0-0.2); Basophils % (auto) 0.2 %; Eosinophils # (auto) 0.22 K/uL (0-0.5); Eosinophils % (auto) 1.5 %; Hematocrit (blood only) 35.3 % (37-47); Immature Granulocytes # (auto) 0.16 K/uL (0.00-0.02); Immature Granulocytes % (auto) 1.1 %; Lymphocytes # (auto) 1.88 K/uL (1.2-3.4); Lymphocytes % (auto) 12.4 %; Mean Corpuscular Hemoglobin 31.3 pg (25-34); Mean Corpuscular Volume 92.2 fL (80-100); Mean Platelet Volume 9.7 fL (7.4-10.4); Monocytes # (auto) 1.39 K/uL (0.11-0.59); Monocytes % (auto) 9.2 %; Neutrophils # (auto) 11.46 K/uL (1.4-6.5); Neutrophils % (auto) 75.6 %; Platelet Count 183 K/uL (130-400); RDW Coefficient of Variation 13.6 % (11.5-14.5); RDW Standard Deviation 45.1 fL (36.4-46.3); Red Blood Count 3.83 M/uL (4.2-5.4); White Blood Count 15.14 K/uL (4.8-10.8)
[2021-07-14] MEDS ORDERED: bisacodyL 5 MG TABEC PO SCH (20:00)
[2021-07-15] MEDS ORDERED: bisacodyL 10 MG SUPP PR PRN
== END 2021-07-14 19:33 | disposition home or self-care (01) | DRG 807 ==
LOC: 4S1 14:17 → 4E2 07-13 03:00
DX: O26.893 Other specified pregnancy related conditions, third trimester; O70.0 First degree perineal laceration during delivery; O48.0 Post-term pregnancy; Z79.899 Other long term (current) drug therapy; Z80.8 Family history of malignant neoplasm of other organs or systems; Z3A.40 40 weeks gestation of pregnancy; O76 Abnormality in fetal heart rate and rhythm complicating labor and delivery; O69.81X0 Labor and delivery complicated by cord around neck, without compression, not applicable or unspecified; D22.9 Melanocytic nevi, unspecified; O09.523 Supervision of elderly multigravida, third trimester; Z20.822 Contact with and (suspected) exposure to COVID-19; Z37.0 Single live birth

== ENCOUNTER 2025-02-01 03:56 | Inpatient (IN) ==
[2025-02-01] MEDS ORDERED: OXYTOCIN 30 UNITS/NSS 30 UNITS/500 ML BAG IV PRN ×2 (04:45→09:16)
[2025-02-01] MEDS ORDERED: LIDOCAINE 1% LOCAL 20 ML VIAL INFIL PRN (04:45)
[2025-02-01] MEDS ORDERED: LACTATED RINGER'S 1,000 ML IV PRN (04:45)
[2025-02-01 05:29] LABS: Hematocrit (blood only) 39.2 % (37.0-47.0); Hemoglobin 13.1 g/dl (12.0-16.0); Mean Corpuscular Hemoglobin 29.2 pg (25.0-34.0); Mean Corpuscular Volume 87.3 fL (80.0-100.0); Platelet Count 171 K/uL (130-400); RDW Standard Deviation 41.0 fL (36.4-46.3); Red Blood Count 4.49 M/uL (4.20-5.40); White Blood Count 14.05 K/ul (4.8-10.8)
[2025-02-01] MEDS: fentANYL 2 MCG/ML BUPIVacaine 0.125%-NSS 100ML BAG ONE (05:55)
[2025-02-01] MEDS: BUPIVACAINE 0.25% PF 30 ML VIAL ONE (06:03)
[2025-02-01] MEDS: LIDOCAINE 2%/EPINEPHRINE 1:200,000 20 ML PF ONE (06:03)
--- NOTE | 2025-02-01 06:18 | Anesthesiology Consultation ---
Date of Service February 01, 2025 Assessment & Plan Chart Review Chart Review: Acceptable Risk for Labor Epidural Consults Requested none ASA [id number] Proposed Anesthesia Anesthesia Type: CSE History Height/Weight Height: 5 ft Weight: 66.224 kg Allergies Allergy/AdvReac Type Severity Reaction Status Date / Time No Known Allergies Allergy Mild Verified 03/21/19 23:43 Medications Home Medications Medication Instructions Recorded Confirmed Last Taken vitamins-iron fumarate 27 1 tab PO DAILY 03/21/19 02/01/25 01/31/25 09:00 mg iron-folic acid 0.8 mg tablet ( Vitamin) vits no.124-ferrous fum 1 tab PO DAILY@08 #90 tabs 07/14/21 02/01/25 01/31/25 09:00 27 mg iron-folic acid 800 mcg tablet ( Vitamin) magnesium 1 tab PO PRN muscle cramps 02/01/25 01/31/25 21:00 Past Medical History Medical History Encounter for pre-operative examination Raynauds disease Post-dates Past Family History Family History (Updated 02/01/25 @ 04:21 by Janet Pollock, JOSE M) Grandfather (Maternal) Diabetes Stroke Father Melanoma Grandfather (Paternal) Cancer Past Surgical History Surgical History H/O dilation and curettage 2018 [place] teeth extracted 1999 Social History Smoking Status: Never smoker Do You Dip or Chew Tobacco: No Hx Alcohol Use: No Hx Substance Use: No substance use type: does not use Physical Exam Vital Signs Last Vital Signs Temp 36.7 C 02/01/25 04:26 Pulse 115 H 02/01/25 06:14 Resp 18 02/01/25 04:26 BP 105/59 L 02/01/25 06:14 Pulse Ox 100 02/01/25 06:12 Testing Laboratory Results 02/01/25 05:06
[2025-02-01] MEDS ORDERED: SODIUM CHLORIDE 0.9% PF INJ 10 ML VIAL EPI PRN (06:19)
[2025-02-01] MEDS ORDERED: BUPIVACAINE 0.25% PF 30 ML VIAL EPI PRN (06:19)
[2025-02-01] MEDS ORDERED: fentANYL 2 MCG/ML BUPIVacaine 0.125%-NSS 100ML BAG EPI PRN (06:19)
[2025-02-01] MEDS ORDERED: NALOXONE HCL 0.4 MG/1 ML VIAL/CARP IV PRN (06:19)
[2025-02-01] MEDS ORDERED: ROPIVACAINE 0.5% PF 5 MG/ML 20 ML VIAL EPI PRN (06:19)
[2025-02-01] MEDS ORDERED: diphenhydrAMINE 50 MG/ML VIAL IV PRN (06:19)
[2025-02-01] MEDS ORDERED: NALBUPHINE HCL INJ 10 MG/ML AMP IV PRN (06:19)
[2025-02-01] MEDS ORDERED: NALOXONE HCL 1 MG in SODIUM CHLORIDE 0.9% 1,000 ML IV PRN (06:19)
[2025-02-01] MEDS ORDERED: LIDOCAINE 2% MPF LOCAL 5 ML VIAL EPI PRN (06:19)
[2025-02-01] MEDS: SODIUM CHLORIDE 0.9% PF INJ 10 ML VIAL ONE (06:21)
[2025-02-01] MEDS: SODIUM CHLORIDE 0.9% PF INJ 10 ML VIAL EPI STA (06:59)
[2025-02-01] MEDS: LIDOCAINE 2%/EPINEPHRINE 1:200,000 20 ML PF EPI STA (06:59)
[2025-02-01] MEDS: BUPIVACAINE 0.25% PF 30 ML VIAL EPI STA (06:59)
--- NOTE | 2025-02-01 07:55 | Obstetrical Progress Note ---
Date of Service February 01, 2025 Assessment & Plan (1) : Plan: Pt doing well Epidural analgesia in place ctx 2-4min decel after bladder cath by nurse Vag. exam by nurse 8cm/100/ FHR returns to CAT1 Anticipate VD Admission and Anticipated Discharge Date Admission Date: February 01, 2025 Results & Data Vital Signs (Past 12 Hours) Vital Signs Temp Pulse Resp BP Pulse Ox 02/01/25 07:48 110 H 113/71 02/01/25 07:47 108 H 92 02/01/25 07:42 102 H 100 02/01/25 07:37 109 H 100 02/01/25 07:32 109 H 100 02/01/25 07:27 99 H 98 02/01/25 07:22 100 H 98 02/01/25 07:17 106 H 117/66 100 02/01/25 07:12 99 H 100 02/01/25 07:07 106 H 100 02/01/25 07:05 36.7 C 16 02/01/25 07:05 16 02/01/25 07:05 36.7 C 16 02/01/25 07:04 101 H 111/64 02/01/25 07:02 102 H 100 02/01/25 06:57 100 H 100 02/01/25 06:52 92 H 100 02/01/25 06:48 117 H 120/57 L 02/01/25 06:47 114 H 100 02/01/25 06:42 114 H 100 02/01/25 06:37 112 H 100 02/01/25 06:35 110 H 197/117 H 02/01/25 06:32 111 H 99 02/01/25 06:27 108 H 100 02/01/25 06:25 99 H 101/60 02/01/25 06:22 97 H 100 02/01/25 06:17 106 H 100 02/01/25 06:14 115 H 105/59 L 02/01/25 06:12 100 02/01/25 06:12 117 H 02/01/25 06:12 105 H 101/52 L 02/01/25 06:11 105 H 100/54 L 02/01/25 06:10 108 H 98/50 L 02/01/25 06:09 100 H 100/55 L 02/01/25 06:08 102 H 124/55 L 02/01/25 06:07 100 02/01/25 06:07 111 H 02/01/25 06:07 169 H 104/48 L 02/01/25 06:05 99 H 102/56 L 02/01/25 06:04 103 H 97/54 L 02/01/25 06:03 101 H 90/62 L 02/01/25 06:02 114 H 99 02/01/25 06:01 106 H 108/69 02/01/25 06:00 116 H 125/69 02/01/25 05:59 106 H 123/72 02/01/25 05:58 106 H 113/59 L 02/01/25 05:57 98 H 100 02/01/25 05:56 100 H 120/68 02/01/25 05:55 93 H 108/69 02/01/25 05:54 100 H 108/67 02/01/25 05:53 93 H 119/65 02/01/25 05:52 98 H 100 02/01/25 05:51 90 119/71 02/01/25 05:50 101 H 117/65 02/01/25 05:49 86 118/73 02/01/25 05:47 106 H 100 02/01/25 05:42 103 H 100 02/01/25 04:26 36.7 C 18 02/01/25 04:15 36.9 C 100 H 18 134/82
[2025-02-01] MEDS ORDERED: ACETAMINOPHEN 325 MG TAB PO PRN (09:16)
[2025-02-01] MEDS ORDERED: HYDROCORTISONE ACETATE 25 MG SUPP PR PRN (09:16)
--- NOTE | 2025-02-01 09:18 | Delivery Summary ---
Vaginal Delivery Summary Date of Service February 01, 2025 Vaginal Delivery Summary Patient was found to be fully dilated and desired to push. She pushed and delivered the head and then shoulders with minimal traction. The baby was handed off to the mother. The cord was clampedx2 and cut at 1 minute. The vagina and perineum were checked and found to be intact, no laceration. The placenta was delivered spontaneously as intact and complete. The uterus was explored and found to be empty. QBL was 80 ml. The fundus was firm. The baby was a viable female infant, Apgars 8/9, the weight is pending The mother and the baby tolerated the procedure well. No complications happened and I was present during whole procedure.
--- NOTE | 2025-02-01 11:02 | Anesthesia Procedure Note ---
Date of Service February 01, 2025 Anesthesia Post Epidural Note Vital Signs Vital Signs: Temp Pulse Resp BP Pulse Ox 36.7 C 106 H 16 134/69 98 02/01/25 07:05 02/01/25 10:48 02/01/25 07:05 02/01/25 10:48 02/01/25 09:27 Notes Mental Status: alert / awake / arousable Nausea / Vomiting: adequately controlled Pain: adequately controlled Airway Patency, RR, SpO2: stable & adequate BP & HR: stable & adequate Hydration State: stable & adequate Neuraxial Anesthesia: was administered and sensory block is resolving Anesthetic Complications: no major complications apparent and Pt Satisfied with anesthetic care Epidural: Removed without complications and With tip intact
[2025-02-01] MEDS: IBUPROFEN 600 MG TAB PO PRN (11:39)
[2025-02-01] MEDS: MEASLES, MUMPS & RUBELLA VIRUS VACCINE (MMR) 0.5ML VIAL SQ ONE (12:19)
[2025-02-01] MEDS: DIPHTHER/TETAN/PERTUS Vaccine (Tdap, Adol/Adult) 0.5mL IM ONE (12:20)
[2025-02-01] MEDS: DOCUSATE SODIUM 100 MG CAP PO SCH (20:44)
[2025-02-01] MEDS: BENZOCAINE 20% SPRY 85 APPLN/85 GM CAN EXT PRN (23:20)
[2025-02-02 06:50] LABS: Hematocrit (blood only) 34.6 % (37.0-47.0); Hemoglobin 11.5 g/dl (12.0-16.0); Mean Corpuscular Hemoglobin 29.5 pg (25.0-34.0); Mean Corpuscular Volume 88.7 fL (80.0-100.0); Platelet Count 171 K/uL (130-400); RDW Standard Deviation 43.4 fL (36.4-46.3); Red Blood Count 3.90 M/uL (4.20-5.40); White Blood Count 15.37 K/ul (4.8-10.8)
[2025-02-02] MEDS: FERROUS SULFATE 325 MG TAB PO SCH (08:07)
[2025-02-02] MEDS: PRENATAL VITAMIN 1 TAB PO SCH (08:08)
--- NOTE | 2025-02-02 08:46 | Obstetrical Progress Note ---
Date of Service February 02, 2025 Assessment & Plan Admission and Anticipated Discharge Date Admission Date: February 01, 2025 Subjective abdomen soft and non tender passing gas no calf tenderness ambulating well vaginal bleeding scant hgb 11.3 Results & Data Vital Signs (Past 12 Hours) Vital Signs Temp Pulse Resp BP Pulse Ox O2 Del Method 02/02/25 08:21 36.5 C 84 16 100/62 99 Room Air 02/02/25 03:00 36.3 C L 92 H 18 97/66 L 98 Room Air 02/01/25 23:08 36.4 C L 89 18 103/69 98 Room Air
[2025-02-03 06:20] LABS: Hematocrit (blood only) 34.0 % (37.0-47.0); Hemoglobin 11.2 g/dl (12.0-16.0)
[2025-02-03 07:46] VITALS: BP 110/73; PULSE 80; RESP 20; TEMP 97.5; O2SAT 99
--- NOTE | 2025-02-03 09:17 | Obstetrical Progress Note ---
Date of Service February 03, 2025 Subjective Passing Gas:: Yes Diet Tolerance:: regular diet Lochia:: Small Feeding Type:: breast feeding Current Pain Level(1-10): 0 doing well. plans for d/c today. Physical Exam Constitutional WD/WN, vitals as above Gastrointestinal (Abdomen) Inspection/Auscultation: abdomen normal to inspection abdomen soft and non-tender. fundus firm below U. Musculoskeletal Extremities: extremities normal to inspection Skin no rashes, warm and dry Neurologic patellar DTR's 2+ bilat, sensation intact Psychiatric A+Ox3, euthymic affect Results & Data Vital Signs (Past 12 Hours) Vital Signs Temp Pulse Resp BP Pulse Ox O2 Del Method 02/03/25 07:05 36.4 C L 80 20 110/73 99 Room Air 02/03/25 00:42 36.6 C 88 16 103/65 98 Room Air Laboratory Results 02/01/25 02/02/25 02/03/25 05:06 06:19 05:46 WBC 14.05 H 15.37 H RBC 4.49 3.90 L Hgb 13.1 11.5 L 11.2 L Hct 39.2 34.6 L 34.0 L MCV 87.3 88.7 MCH 29.2 29.5 MCHC 33.4 33.2 RDW Std Deviation 41.0 43.4 RDW Coeff of Yoly 13.0 13.3 Plt Count 171 171 MPV 9.7 9.8 Treponema pallidum Ab Negative
--- NOTE | 2025-02-04 14:59 | Coding Query ---
CODING QUERY To promote full compliance with coding requirements relating to patient care, provider participation is requested in all cases of lottery manager uncertainty. Please assist us with the question(s) below: Coding Question(s): Please list Weeks of Gestation for appropriate coding. Physician's Response(s): Weeks of Gestation 39 weeks 3 days Thank you Deb Krueger Principal Diagnosis: "that condition established after study, to be chiefly responsible for occasioning the admission of the patient to the hospital for care." Co-Existing Principal Diagnosis: "when two or more diagnoses equally meet the criteria for principal diagnosis as determined by the circumstances of admission, diagnostic work up, and/or therapy provided, and the Alphabetic Index, Tabular List, or another coding guideline does not provide sequencing direction, any one of the diagnoses may be sequenced first." "When the physician has documented what appears to be a current diagnosis in the body of the record, but has not included the diagnosis in the final diagnostic statement, the physician should be asked whether the diagnosis should be added." (Source [facility] 2 QTR90. p3-4) HENRI
== END 2025-02-03 13:05 | disposition home or self-care (01) | DRG 807 ==
LOC: OPB 03:56 → 4S1 04:03 → 4E2 11:30